=== PATIENT | male | born 1960 | race Caucasian/White ===

== ENCOUNTER 2017-11-30 15:57 | Emergency (ER) | payer OTHER ==
[~2017-11-30] VITALS: Ht 180.3 cm; Wt 77.1 kg
[~2017-11-30 15:57] MED LIST: BACTRIM DS TAB1 EACH PO; DOXYCYCLINE 10100 MG PO; FLOMAX0.4 MG PO; NORCO 5-325 TA1 EACH PO; TORADOL 10 MG T10 MG PO; VICODIN 5-5001 EACH PO
[2017-11-30 16:21] LABS: URINE BILIRUBIN NEGATIVE (Negative); URINE BLOOD NEGATIVE (Negative); URINE CLARITY CLEAR; URINE COLOR YELLOW; URINE GLUCOSE-RANDOM NEGATIVE (Negative); URINE KETONES NEGATIVE (Negative); URINE LEUKOCYTES-REFLEX NEGATIVE (Negative); URINE NITRITE-REFLEX NEGATIVE (Negative); URINE PROTEIN NEGATIVE (Negative); URINE SPECIFIC GRAVITY >= 1.030 (1.005-1.030); URINE UROBILINOGEN 0.2 E.U./dl (0.2-1.0)
[2017-11-30 16:39] LABS: ABSOLUTE BASOPHILS 0.1 thou/uL (0.0-0.2); ABSOLUTE EOSINOPHILS 0.2 thou/uL (0.0-0.7); ABSOLUTE LYMPHOCYTES 1.7 thou/uL (0.8-5.3); ABSOLUTE MONOCYTES 0.7 thou/uL (0.0-1.2); ABSOLUTE NEUTROPHILS 3.9 thou/uL (1.6-8.1); BASOPHILS 1.1 %; HEMATOCRIT 44.4 % (42.0-52.0); HEMOGLOBIN 15.4 gm/dL (14.0-18.0); LYMPHOCYTES 25.4 %; MCH 31.7 pg (26.0-34.0); MCHC 34.7 g/dL (28.0-37.0); MCV 91.3 fL (80.0-100.0); MONOCYTES 11.2 %; MPV 8.8 fl. (7.2-11.1); NUCLEATED RBCS 0 /100WBC; PLATELET COUNT* 216 thou/uL (150-400); POLYS 59.3 %; RBC 4.87 mil/uL (4.50-6.00); RDW-CV 13.5 % (10.5-14.5); WBC 6.6 thou/uL (4.0-11.0)
[2017-11-30 16:59] LABS: CALCIUM 8.9 mg/dL (8.5-10.1); POTASSIUM 3.4 mmol/L (3.5-5.1)
[2017-11-30 17:04] LABS: ALBUMIN 3.5 g/dL (3.4-5.0); TOTAL BILIRUBIN 0.4 mg/dL (<0.1-1.0); TOTAL PROTEIN 7.1 g/dL (6.4-8.2)
[2017-11-30] MEDS ORDERED: ZPAK PO (18:24)
[2017-11-30] MEDS ORDERED: PREDNISONE50 MG PO (18:24)
[2017-11-30] MEDS ORDERED: VENTOLIN HFA 1818 GM INH (18:24)
[2017-11-30 18:40] VITALS: BP 166/89
== END 2017-11-30 18:42 | disposition home or self-care (01) ==
LOC: M.ERS 15:57
PROVIDERS: Nurse Practitioner Family; Physician Assistant
DX: J18.1 Lobar pneumonia, unspecified organism (principal); M54.5 Low back pain; N23 Unspecified renal colic; F17.210 Nicotine dependence, cigarettes, uncomplicated

== ENCOUNTER 2017-12-09 10:33 | Emergency (ER) | payer OTHER ==
[~2017-12-09] VITALS: Ht 180.3 cm; Wt 79.4 kg
[~2017-12-09 10:33] MED LIST changes: +PREDNISONE50 MG PO; +VENTOLIN HFA 1818 GM INH; +ZPAK PO
[2017-12-09 11:05] LABS: ABSOLUTE BASOPHILS 0.1 thou/uL (0.0-0.2); ABSOLUTE EOSINOPHILS 0.3 thou/uL (0.0-0.7); ABSOLUTE LYMPHOCYTES 2.4 thou/uL (0.8-5.3); ABSOLUTE MONOCYTES 1.2 thou/uL (0.0-1.2); ABSOLUTE NEUTROPHILS 5.6 thou/uL (1.6-8.1); BASOPHILS 1.2 %; EOSINOPHILS 2.8 %; HEMATOCRIT 43.3 % (42.0-52.0); HEMOGLOBIN 14.7 gm/dL (14.0-18.0); LYMPHOCYTES 25.1 %; MCH 31.4 pg (26.0-34.0); MCHC 33.9 g/dL (28.0-37.0); MCV 92.6 fL (80.0-100.0); MONOCYTES 12.5 %; MPV 8.3 fl. (7.2-11.1); NUCLEATED RBCS 0 /100WBC; PLATELET COUNT* 225 thou/uL (150-400); POLYS 58.4 %; RBC 4.68 mil/uL (4.50-6.00); RDW-CV 13.7 % (10.5-14.5); WBC 9.5 thou/uL (4.0-11.0)
[2017-12-09 11:10] LABS: ANION GAP 7 mmol/L (7-16); BUN 9 mg/dL (7-18); CALCIUM 8.5 mg/dL (8.5-10.1); CHLORIDE 105 mmol/L (98-107); CO2 28 mmol/L (21-32); GLUCOSE 120 mg/dL (70-99); POTASSIUM 3.3 mmol/L (3.5-5.1); SODIUM 140 mmol/L (136-145)
[2017-12-09 11:16] LABS: ALBUMIN 3.3 g/dL (3.4-5.0); ALKALINE PHOSPHATASE 97 U/L (46-116); SGOT 10 U/L (15-37); SGPT 22 U/L (30-65); TOTAL BILIRUBIN 0.8 mg/dL (<0.1-1.0); TOTAL PROTEIN 6.5 g/dL (6.4-8.2); TROPONIN-I LEVEL <0.06 ng/mL (<0.06)
[2017-12-09] MEDS ORDERED: FLEXERIL PO (11:58)
[2017-12-09] MEDS ORDERED: IBUPROFEN 800800 M1 PO (11:58)
[2017-12-09] MEDS ORDERED: VENTOLIN HFA 1818 GM INH (11:58)
[2017-12-09 12:12] VITALS: BP 146/88
--- NOTE | 2017-12-09 14:41 | EKG ---
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 : 1960 Requested By: Jesus Hale Order Number: [id number] MD: Joaquin Reynaga Measurements Intervals [place] Rate: 92 P: 27 WA: 123 QRS: 61 QRSD: 96 T: 75 QT: 377 QTc: 467 Interpretive Statements Sinus rhythm Probable left ventricular hypertrophy Baseline wander in lead(s) V3 No previous ECG available for comparison Electronically Signed On 12-09-2017 14:40:53 CDT by Joaquin Reynaga [email or web address] <ELECTRONICALLY SIGNED> By: Joaquin Reynaga MD, [facility] 12/09/17 1440 1050 1050 Joaquin Reynaga MD, FACC /EPI
== END 2017-12-09 12:13 | disposition home or self-care (01) ==
LOC: M.ERS 10:33
PROVIDERS: Emergency Medicine Emergency Medical Services
DX: J40 Bronchitis, not specified as acute or chronic (principal); F17.210 Nicotine dependence, cigarettes, uncomplicated

== ENCOUNTER 2020-01-10 09:16 | Emergency (ER) | payer OTHER ==
[~2020-01-10] VITALS: Ht 185.4 cm; Wt 95.3 kg
[~2020-01-10 09:16] MED LIST changes: +FLEXERIL PO; +IBUPROFEN 800800 M1 PO
[2020-01-10] MEDS ORDERED: LISINOPRIL2.5 MG PO (09:24)
[2020-01-10] MEDS ORDERED: HYDROCHLOROTHIA25 M2 PO (09:24)
[2020-01-10 09:52] LABS: ABSOLUTE BASOPHILS 0.1 thou/uL (0.0-0.2); ABSOLUTE EOSINOPHILS 0.1 thou/uL (0.0-0.7); ABSOLUTE LYMPHOCYTES 1.8 thou/uL (0.8-5.3); ABSOLUTE MONOCYTES 1.6 thou/uL (0.0-1.2); ABSOLUTE NEUTROPHILS 6.4 thou/uL (1.6-8.1); BASOPHILS 0.6 %; EOSINOPHILS 1.3 %; HEMOGLOBIN 13.9 gm/dL (14.0-18.0); LYMPHOCYTES 18.5 %; MCH 33.3 pg (26.0-34.0); MCHC 35.7 g/dL (28.0-37.0); MCV 93.1 fL (80.0-100.0); MONOCYTES 15.6 %; MPV 9.5 fl. (7.2-11.1); NUCLEATED RBCS 0 /100WBC; PLATELET COUNT* 202 thou/uL (150-400); RBC 4.19 mil/uL (4.50-6.00); RDW-CV 12.9 % (10.5-14.5)
[2020-01-10 10:02] LABS: PROTIME 10.1 Seconds (9.20-11.50)
[2020-01-10 10:04] LABS: CALCIUM 8.4 mg/dL (8.5-10.1); CREATININE 1.2 mg/dL (0.6-1.3); POTASSIUM 3.3 mmol/L (3.5-5.1)
[2020-01-10 10:09] LABS: ALBUMIN 3.7 g/dL (3.4-5.0); TOTAL BILIRUBIN 1.1 mg/dL (<0.1-1.0); TOTAL PROTEIN 7.3 g/dL (6.4-8.2)
[2020-01-10] MEDS ORDERED: ZPAK PO (12:34)
[2020-01-10 12:48] VITALS: BP 126/82
--- NOTE | 2020-01-10 17:18 | EKG ---
[place] [address] ELECTROCARDIOGRAM REPORT Name: JENNI HANSEN Room: [facility]#: [id number] Admission: 01/10/20 Attend Phys: Discharge: 01/10/20 Date of : 64 Date of Service: 01/10/20917 Report #: [id number] THIS REPORT FOR: //name// 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
== END 2020-01-10 12:49 | disposition home or self-care (01) ==
LOC: M.ERS 09:16
PROVIDERS: Personal Emergency Response Attendant
DX: J18.9 Pneumonia, unspecified organism (principal); Z20.828 Contact with and (suspected) exposure to other viral communicable diseases; I10 Essential (primary) hypertension; F17.210 Nicotine dependence, cigarettes, uncomplicated; Z79.899 Other long term (current) drug therapy; Z87.442 Personal history of urinary calculi

== ENCOUNTER 2020-08-25 08:46 | Inpatient (IN) | payer OTHER ==
[~2020-08-25] VITALS: Ht 180.3 cm; Wt 77.1 kg
[~2020-08-25 08:46] MED LIST changes: +HYDROCHLOROTHIA25 M2 PO; +LISINOPRIL2.5 MG PO
[2020-08-25 08:50] VITALS: BP 118/63
[2020-08-25 09:09] LABS: ABSOLUTE BASOPHILS 0.1 thou/uL (0.0-0.2); ABSOLUTE EOSINOPHILS 0.3 thou/uL (0.0-0.7); ABSOLUTE LYMPHOCYTES 1.6 thou/uL (0.8-5.3); ABSOLUTE MONOCYTES 1.1 thou/uL (0.0-1.2); ABSOLUTE NEUTROPHILS 6.5 thou/uL (1.6-8.1); BASOPHILS 0.8 %; EOSINOPHILS 3.1 %; HEMATOCRIT 46.6 % (42.0-52.0); HEMOGLOBIN 15.7 gm/dL (14.0-18.0); LYMPHOCYTES 16.4 %; MCH 31.4 pg (26.0-34.0); MCHC 33.7 g/dL (28.0-37.0); MCV 93.3 fL (80.0-100.0); MONOCYTES 11.7 %; NUCLEATED RBCS 0 /100WBC; PLATELET COUNT* 205 thou/uL (150-400); RDW-CV 12.5 % (10.5-14.5); WBC 9.5 thou/uL (4.0-11.0)
[2020-08-25 09:20] LABS: CREATININE 1.2 mg/dL (0.6-1.3); POTASSIUM 3.8 mmol/L (3.5-5.1)
[2020-08-25 09:24] LABS: ALBUMIN 3.6 g/dL (3.4-5.0); MAGNESIUM 2.1 mg/dL (1.8-2.4); TOTAL BILIRUBIN 1.1 mg/dL (<0.1-1.0)
--- NOTE | 2020-08-25 10:55 | NUR ---
PT CONNECTED TO MONITOR AND GUSTAVO NOTIFIED OF PT RETURN
[2020-08-25 12:48] VITALS: BP 119/78
--- NOTE | 2020-08-25 13:15 | EKG ---
[place] [address] ELECTROCARDIOGRAM REPORT Name: TYRONEJENNI E Room: [address] ADM IN M.R.#: [id number] Admission: 08/25/20 Attend Phys: Sandy Bal, Discharge: Date of : 64 Date of Service: 08/25/20 0855 Report #: [id number] THIS REPORT FOR: //name// [facility] Test Date: 2020-08-25 Test Time: 08:55:43 Pat Name: JENNI HANSEN Department: Room: [facility] Gender: M Manager Delivery: PARAMJIT : 1960 Requested By: Jesus Hale Order Number: [id number] MD: Joaquin Reynaga Measurements Intervals [place] Rate: 101 P: 11 ID: 131 QRS: 76 QRSD: 87 T: 83 QT: 345 QTc: 448 Interpretive Statements Sinus tachycardia Nonspecific T abnrm, anterolateral leads Baseline wander in lead(s) V3 Compared to ECG 01/10/2020 09:18:58 No significant changes Electronically Signed On 08-25-2020 13:15:10 CDT by Joaquin Reynaga [email or web address] <ELECTRONICALLY SIGNED> By: Joaquin Reynaga MD, [facility] 08/25/20 1315 0855 0855 Joaquin Reynaga MD, [facility] /EPI
[2020-08-25 13:16] VITALS: BP 129/84
[2020-08-25 15:29] LABS: CALCIUM 9.1 mg/dL (8.5-10.1); CREATININE 1.1 mg/dL (0.6-1.3); POTASSIUM 4.5 mmol/L (3.5-5.1)
[2020-08-25 15:32] LABS: MAGNESIUM 2.1 mg/dL (1.8-2.4); PHOSPHORUS* 3.3 mg/dL (2.5-4.9)
--- NOTE | 2020-08-25 16:38 | 2DMMODE ---
[place] [address] 2 D/M-MODE ECHOCARDIOGRAM Name: TYRONEJENNI Room: [address] IN Kae#: [id number] Admission: 08/25/20 Attend Phys: Jamir Ibrahim Discharge: Date of : 64 Date of Service: 08/25/20 1638 Report #: [id number] THIS REPORT FOR: cc: FAM - No family physician/PCP FAM - No family physician/PCP Joaquin Reynaga MD [facility] ~ APPROVED REPORT Study performed: 08/25/2020 16:05:08 EXAM: Comprehensive 2D, Doppler, and color-flow Echocardiogram Patient Location: In-Patient Room #: [facility] Status: routine BSA: 1.97 HR: 80 bpm BP: 129/84 mmHg Rhythm: NSR Other Information Study Quality: Good Indications Chest Pain 2D Dimensions IVSd: 14.99 (7-11mm) LVOT Diam: 21.32 (18-24mm) LVDd: 39.04 mm PWd: 11.29 (7-11mm) Ascending Ao: 28.74 (22-36mm) LVDs: 28.76 (25-40mm) Aortic Root: 32.60 mm Volumes Left Atrial Volume (Systole) LA ESV Index: 17.80 mL/m2 Aortic Valve AoV Peak Kg.: 1.34 m/s AO Peak Gr.: 7.16 mmHg LVOT Max P.89 mmHg AO Mean Gr.: 4.25 mmHg LVOT Mean P.36 mmHg LVOT Max V: 0.85 m/s AO V2 VTI: 23.57 cm LVOT Mean V: 0.53 m/s CHELY (VTI): 2.36 cm2 LVOT V1 VTI: 15.59 [place] [address] 2 D/M-MODE ECHOCARDIOGRAM Name: JENNI HANSEN Room: [address]#: [id number] Admission: 08/25/20 Attend Phys: Jamir Ibrahim Discharge: Date of : 64 Date of Service: 08/25/20 1638 Report #: [id number] Mitral Valve E/A Ratio: 0.78 MV Decel. Time: 277.64 ms MV E Max Kg.: 0.55 m/s MV PHT: 80.52 ms MVA (PHT): 2.73 cm2 TDI E/Lateral E': 4.23 E/Medial E': 5.00 Medial E' Kg.: 0.11 m/s Lateral E' Kg.: 0.13 m/s Pulmonary Valve PV Peak Kg.: 1.00 m/s PV Peak Gr.: 4.02 mmHg Tricuspid Valve RAP Estimate: 5.00 mmHg TR Peak Gr.: 27.36 mmHg RVSP: 32.00 mmHg PA Pressure: 32.00 mmHg Left Ventricle The left ventricle is normal size. There is normal LV segmental wall motion. Mild concentric left ventricular hypertrophy. Left ventricular systolic function is normal. The left ventricular ejection fraction is within the normal range. LVEF is 60-65%. Grade I - abnormal relaxation pattern. Right Ventricle The right ventricle is normal size. The right ventricular systolic function is normal. Atria The left atrium size is normal. The right atrium size is normal. Aortic Valve The aortic valve is normal in structure. No aortic regurgitation is present. There is no aortic valvular stenosis. Mitral Valve The mitral valve is normal in structure. There is no mitral valve regurgitation noted. No evidence of mitral valve stenosis. Tricuspid Valve The tricuspid valve is normal in structure. Mild tricuspid regurgitation. pulmonary pressure of 40 [place] [address] 2 D/M-MODE ECHOCARDIOGRAM Name: JENNI HANSEN Room: [address] IN [facility]#: [id number] Admission: 08/25/20 Attend Phys: Jamir Ibrahim Discharge: Date of : 64 Date of Service: 08/25/20 1638 Report #: [id number] Pulmonic Valve The pulmonary valve is normal in structure. There is no pulmonic valvular regurgitation. Great Vessels The aortic root is normal in size. IVC is normal in size and collapses >50% with inspiration. Pericardium There is no pericardial effusion. <Conclusion> Mild concentric left ventricular hypertrophy. LVEF is 60-65%. Mild tricuspid regurgitation. pulmonary pressure of 40 mm Hg <ELECTRONICALLY SIGNED> By: Joaquin Reynaga MD, FACC 08/25/20 1638 1638 1638 Joaquin Reynaga MD, FACC /INF
[2020-08-25 20:38] VITALS: BP 129/76
[2020-08-25 23:06] LABS: GLYCOHEMOGLOBIN (HGB A1C) 6.1 % (4.8-5.6)
[2020-08-26 00:23] VITALS: BP 129/71
[2020-08-26 04:21] LABS: MCH 31.9 pg (26.0-34.0); MCHC 34.1 g/dL (28.0-37.0); MCV 93.6 fL (80.0-100.0); MPV 9.1 fl. (7.2-11.1); RBC 4.37 mil/uL (4.50-6.00); RDW-CV 12.8 % (10.5-14.5); WBC 7.5 thou/uL (4.0-11.0)
[2020-08-26 04:29] VITALS: BP 120/60
[2020-08-26 05:02] LABS: ALBUMIN 3.2 g/dL (3.4-5.0); CALCIUM 8.9 mg/dL (8.5-10.1); MAGNESIUM 1.9 mg/dL (1.8-2.4); POTASSIUM 3.9 mmol/L (3.5-5.1); TOTAL BILIRUBIN 0.6 mg/dL (<0.1-1.0); TOTAL PROTEIN 6.5 g/dL (6.4-8.2)
[2020-08-26 08:08] VITALS: BP 137/69
[2020-08-26 11:01] VITALS: BP 137/69
[2020-08-26 11:45] VITALS: BP 137/69
[2020-08-26] MEDS ORDERED: DORYX MPC120 MG PO (13:12)
--- NOTE | 2020-08-26 13:41 | NUR ---
ASSUMED PT CARE AT 0730. PT IS PLEASANT AND A&OX4. PT ASSESSED AND DENIES ANY PAIN AND/OR DISCOMFORT AT THIS TIME. DENIES CHEST PAIN. IV ANTIBIOTICS COMPLETED. ALL SCHEDULED MEDICATIONS ADMINISTERED ORDERED. PT UP AD DELL. INDEPENDENT WITH ADL'S.
--- NOTE | 2020-08-26 13:57 | NUR ---
Pt is A&O. Resides at home alone. Independent. No DME.No hx of HH or SNF. Goal is home at dc, no needs. Pt does not have a PCP, [facility] placed the [facility] info in Pt's dc summary. Med Assist to screen for Medicaid. DC today.
[2020-08-26 14:46] VITALS: BP 137/69
--- NOTE | 2020-08-26 15:21 | CON ---
[address] [address] CONSULTATION Name: JENNI HANSEN Room: [address] IN Robert.Abe.#: [id number] Admission: 08/25/20 Attend Phys: Jamir Salvador, Discharge: 08/26/20 Date of : 64 Report #: [id number] THIS REPORT FOR: cc: FAM - No family physician/PCP FAM - No family physician/PCP ~ Joaquin Reynaga MD [facility] DATE OF SERVICE: 08/25/2020 CARDIOLOGY CONSULTATION HISTORY OF PRESENT ILLNESS: The patient is a 60-year-old single white male who I was asked to see in the hospital today after he complained of being short of breath. The patient has no previous history of heart disease. He currently receives his care at the [facility]. He was actually admitted here earlier today when he came to the Emergency Room with his girlfriend. He has been more short of breath for the past week. He denied fever, cough or lower extremity edema. Denies any chest pain, arm pain, palpitations or syncope. PAST MEDICAL HISTORY: He has had previous arm surgery, has a history of hypertension. MEDICATIONS: Include lisinopril/HCTZ. FAMILY HISTORY: His father had a coronary stent. 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 Smokes half pack of cigarettes a day. No alcohol abuse. Unfortunately, he has no medical insurance. REVIEW OF SYSTEMS: He had no history of stroke, asthma, liver disease, kidney stones. No cancer, no psychiatric illness or chronic skin condition. PHYSICAL EXAMINATION: GENERAL: Revealed a middle-aged male, lying in bed. He appeared in no distress. VITAL SIGNS: His blood pressure 130/80, pulse is 80. He is afebrile. HEENT: He was anicteric. Conjunctivae pink. Mucous membranes moist. NECK: Veins nondistended. No carotid bruits. CHEST: Revealed expiratory wheezes. CARDIOVASCULAR: Regular rate and rhythm. ABDOMEN: Soft. EXTREMITIES: Had no edema. Dorsalis pedis pulse 1+ bilaterally. SKIN: [place] [address] CONSULTATION Name: JENNI HANSEN Room: [address]#: [id number] Admission: 08/25/20 Attend Phys: Jamir Salvador, Discharge: 08/26/20 Date of : 64 Report #: [id number] NEUROLOGIC: Nonfocal. RADIOLOGICAL DATA: His ECG on admission showed a sinus rhythm, early repolarization. His x-rays, the patient had a portable chest x-ray in the Emergency Room this morning showed normal heart size, clear lung montague. Pulmonary nodule was noted. There appears to be an infiltrate in left upper lobe. He actually had a CT scan of the chest using a PE protocol this morning that showed no pulmonary embolus, no aortic dissection, some atelectasis, occlusion of the left upper lobe bronchus, some atelectasis, possible hilar mass. LABORATORY DATA: Sodium 140, creatinine 1.2. Troponin 0.06. TSH 1.0. White blood cell count 9.5, hemoglobin 15.7. His COVID antigen stat test was negative. IMPRESSION AND RECOMMENDATIONS: 1. Chronic obstructive pulmonary disease. 2. Tobacco abuse. 3. Possible lung cancer. <ELECTRONICALLY SIGNED> By: Joaquin Reynaga MD, FACC 08/26/20 1521 1530 1552Delena Reynaga MD, [facility] /nt
== END 2020-08-26 15:08 | disposition home or self-care (01) | DRG 191 ==
LOC: M.ERS 08:46 → M.2W 11:30 → M.TBA-ER 11:30 → M.2W 12:58
PROVIDERS: Emergency Medicine Emergency Medical Services; ADMIT Family Medicine; ATTEND Family Medicine
DX: J44.1 Chronic obstructive pulmonary disease with (acute) exacerbation (principal); C34.90 Malignant neoplasm of unspecified part of unspecified bronchus or lung; J98.11 Atelectasis; I10 Essential (primary) hypertension; F17.210 Nicotine dependence, cigarettes, uncomplicated; R73.9 Hyperglycemia, unspecified; Z71.6 Tobacco abuse counseling; Z87.442 Personal history of urinary calculi; Z82.49 Family history of ischemic heart disease and other diseases of the circulatory system; Z79.82 Long term (current) use of aspirin; Z79.899 Other long term (current) drug therapy; Z20.822 Contact with and (suspected) exposure to COVID-19; Z60.2 Problems related to living alone